=== PATIENT | male | born 1975 | race Caucasian/White ===

== ENCOUNTER 2017-03-15 01:55 | Inpatient (IN) | payer OTHER ==
[2017-03-15] VITALS (7 sets, daily range): BP systolic 134–218; BP diastolic 75–109
[~2017-03-15] VITALS: Ht 182.9 cm; Wt 78.6 kg
[2017-03-15 03:02] LABS: BASOPHIL % 0.6 % (0-2); RED CELL DISTRIBUTION WIDTH 14.4 % (11.5-14.5)
[2017-03-15 03:05] LABS: PLATELET COUNT 122 x10^3mcL (130-400)
[2017-03-15 03:29] LABS: BILIRUBIN TOTAL 0.31 mg/dL (0.20-1.00); CALCIUM 7.7 mg/dL (8.5-10.1); CARBON DIOXIDE 27.5 mmol/L (21-32); POTASSIUM SERUM 3.9 mmol/L (3.5-5.1)
[2017-03-15 03:30] LABS: CREATININE SERUM 9.2 mg/dL (0.7-1.3); TOTAL PROTEIN, SERUM 5.8 g/dL (6.4-8.2)
[2017-03-15 05:18] LABS: MAGNESIUM 2.2 mg/dL (1.8-2.4); PHOSPHOROUS 3.8 mg/dL (2.5-4.9)
[2017-03-15 05:20] LABS: CHOLESTEROL/HDL RATIO 1.4
[2017-03-15 05:23] LABS: FREE T4 1.12 ng/dL (0.76-1.46); T4(THYROXINE) 5.8 ug/dL (4.7-13.3)
[2017-03-15 05:28] LABS: T3 TOTAL 0.7 ng/mL
[2017-03-15] MEDS ORDERED: PHOSLO667 MG PO (12:14)
[2017-03-15] MEDS ORDERED: SIMVASTATIN40 M1 PO (12:16)
[2017-03-15] MEDS ORDERED: NIFEDIPINE60 MG PO (12:18)
[2017-03-15] MEDS ORDERED: KEPPRA500 MG PO (12:19)
[2017-03-15] MEDS ORDERED: GOOD SENSE OMEP20 MG PO (12:24)
[2017-03-15] MEDS ORDERED: COZAAR100 MG PO (12:45)
[2017-03-15] MEDS ORDERED: PAROXETINE HCL30 MG PO (12:46)
[2017-03-15] MEDS ORDERED: LEVOTHYROXIN0.025 M2 PO (12:46)
[2017-03-15] MEDS ORDERED: LANTUS100 U/ML SQ (12:54)
[2017-03-15] MEDS ORDERED: NOVI SQ (12:57)
[2017-03-16 05:40] VITALS: BP 166/85
[2017-03-16 05:53] LABS: BASOPHIL % 0.4 % (0-2); PLATELET COUNT 147 x10^3mcL (130-400); RED CELL DISTRIBUTION WIDTH 14.4 % (11.5-14.5)
[2017-03-16 06:49] LABS: CALCIUM 7.9 mg/dL (8.5-10.1); CARBON DIOXIDE 30.3 mmol/L (21-32); MAGNESIUM 1.8 mg/dL (1.8-2.4); PHOSPHOROUS 3.9 mg/dL (2.5-4.9); POTASSIUM SERUM 3.8 mmol/L (3.5-5.1)
[2017-03-16 06:53] LABS: CREATININE SERUM 6.2 mg/dL (0.7-1.3)
[2017-03-16 09:52] VITALS: BP 118/93
[2017-03-16 13:52] VITALS: BP 149/71
[2017-03-16] MEDS ORDERED: MINOXIDIL2.5 MG PO (15:13)
[2017-03-16] MEDS ORDERED: CATAPRES T0.3 MG/21 TD (15:16)
[2017-03-16 16:26] VITALS: BP 142/72
[2017-03-16 20:04] VITALS: BP 138/73
[2017-03-17 05:47] VITALS: BP 149/84
[2017-03-17 06:27] LABS: CALCIUM 8.1 mg/dL (8.5-10.1); CARBON DIOXIDE 31.1 mmol/L (21-32); POTASSIUM SERUM 3.8 mmol/L (3.5-5.1)
[2017-03-17 06:31] LABS: CREATININE SERUM 8.7 mg/dL (0.7-1.3)
[2017-03-17 07:48] LABS: BASOPHIL % 0.7 % (0-2); PLATELET COUNT 148 x10^3mcL (130-400); RED CELL DISTRIBUTION WIDTH 14.3 % (11.5-14.5)
[2017-03-17 09:45] VITALS: BP 144/70
[2017-03-17 13:18] VITALS: BP 154/74
[2017-03-17 16:33] VITALS: BP 179/71
[2017-03-17 19:20] VITALS: BP 124/53
[2017-03-17 21:41] VITALS: BP 156/81
[2017-03-18 06:04] VITALS: BP 154/91
[2017-03-18 06:04] LABS: BASOPHIL % 0.7 % (0-2); PLATELET COUNT 153 x10^3mcL (130-400); RED CELL DISTRIBUTION WIDTH 14.4 % (11.5-14.5)
[2017-03-18 07:04] LABS: CALCIUM 8.2 mg/dL (8.5-10.1); CARBON DIOXIDE 29.1 mmol/L (21-32); MAGNESIUM 1.8 mg/dL (1.8-2.4); POTASSIUM SERUM 4.8 mmol/L (3.5-5.1)
[2017-03-18 07:10] LABS: CREATININE SERUM 6.4 mg/dL (0.7-1.3)
[2017-03-18 09:15] VITALS: BP 159/77
[2017-03-18 13:16] VITALS: BP 151/78
[2017-03-18 16:41] VITALS: BP 148/82
[2017-03-18 21:13] VITALS: BP 171/87
[2017-03-19] VITALS (8 sets, daily range): BP systolic 150–196; BP diastolic 83–105
[2017-03-19 06:29] LABS: BASOPHIL % 0.8 % (0-2); PLATELET COUNT 149 x10^3mcL (130-400); RED CELL DISTRIBUTION WIDTH 14.2 % (11.5-14.5)
[2017-03-19 06:49] LABS: CALCIUM 8.4 mg/dL (8.5-10.1); CARBON DIOXIDE 29.6 mmol/L (21-32); MAGNESIUM 1.9 mg/dL (1.8-2.4); POTASSIUM SERUM 5.1 mmol/L (3.5-5.1)
[2017-03-19 07:05] LABS: CREATININE SERUM 8.9 mg/dL (0.7-1.3)
[2017-03-20 05:44] VITALS: BP 155/87
[2017-03-20 06:21] LABS: CALCIUM 8.3 mg/dL (8.5-10.1); CARBON DIOXIDE 23.9 mmol/L (21-32); MAGNESIUM 2.1 mg/dL (1.8-2.4)
[2017-03-20 06:28] LABS: BASOPHIL % 0.2 % (0-2); PLATELET COUNT 169 x10^3mcL (130-400); RED CELL DISTRIBUTION WIDTH 14.2 % (11.5-14.5)
[2017-03-20 06:41] LABS: CREATININE SERUM 10.9 mg/dL (0.7-1.3); POTASSIUM SERUM 7.1 mmol/L (3.5-5.1)
[2017-03-20 09:35] VITALS: BP 120/71
[2017-03-20 13:40] VITALS: BP 144/79
[2017-03-20 17:03] LABS: CALCIUM 8.9 mg/dL (8.5-10.1); POTASSIUM SERUM 4.4 mmol/L (3.5-5.1)
[2017-03-20 17:18] LABS: CREATININE SERUM 6.1 mg/dL (0.7-1.3)
[2017-03-20 17:27] VITALS: BP 162/85
[2017-03-20 22:28] VITALS: BP 154/82
[2017-03-21 06:55] LABS: BASOPHIL % 0.1 % (0-2); PLATELET COUNT 193 x10^3mcL (130-400); RED CELL DISTRIBUTION WIDTH 14.3 % (11.5-14.5)
[2017-03-21 07:09] VITALS: BP 147/75
[2017-03-21 08:01] LABS: CALCIUM 8.1 mg/dL (8.5-10.1); CARBON DIOXIDE 30.1 mmol/L (21-32); MAGNESIUM 1.9 mg/dL (1.8-2.4); PHOSPHOROUS 6.7 mg/dL (2.5-4.9); POTASSIUM SERUM 4.4 mmol/L (3.5-5.1)
[2017-03-21 08:02] LABS: CREATININE SERUM 7.4 mg/dL (0.7-1.3)
[2017-03-21 13:34] VITALS: BP 193/101
[2017-03-21 14:11] VITALS: BP 118/69
[2017-03-21 17:25] VITALS: BP 118/69
[2017-03-21] MEDS ORDERED: DIF100 PO (17:29)
[2017-03-21] MEDS ORDERED: ZOS2I IV (17:32)
[2017-03-21] MEDS ORDERED: BUS5 PO (17:44)
[2017-03-21 17:53] VITALS: BP 143/77
== END 2017-03-21 19:40 | DRG 177 ==
LOC: ED 01:55 → DU 04:17 → MU 03-21 09:49
PROVIDERS: Emergency Medicine; Family Medicine; Internal Medicine; ADMIT Family Medicine
DX: J69.0 Pneumonitis due to inhalation of food and vomit (principal); G93.41 Metabolic encephalopathy; N18.6 End stage renal disease; N17.0 Acute kidney failure with tubular necrosis; I12.0 Hypertensive chronic kidney disease with stage 5 chronic kidney disease or end stage renal disease; Z68.1 Body mass index [BMI] 19.9 or less, adult; E44.0 Moderate protein-calorie malnutrition; E11.649 Type 2 diabetes mellitus with hypoglycemia without coma; E11.319 Type 2 diabetes mellitus with unspecified diabetic retinopathy without macular edema; E11.21 Type 2 diabetes mellitus with diabetic nephropathy; E11.65 Type 2 diabetes mellitus with hyperglycemia; J44.9 Chronic obstructive pulmonary disease, unspecified; M62.50 Muscle wasting and atrophy, not elsewhere classified, unspecified site; D63.1 Anemia in chronic kidney disease; B35.1 Tinea unguium; H54.0 Blindness, both eyes; Z99.2 Dependence on renal dialysis; Z79.4 Long term (current) use of insulin; Z87.820 Personal history of traumatic brain injury
CPT/HCPCS: 82962; 83880; 84439; 94150; 97116-GP; A4719; B4164; J0360; J1200; J1815; J2270; J2405; J2543; J2920; J2930; J3490; J7030; J7040; J7042; J7620; Q0092; Q0163